=== PATIENT | female | born 1980 | race Caucasian/White ===

== ENCOUNTER 2018-07-31 11:35 | Observation (INO) ==
[2018-07-31 12:57] LABS: Amphetamine Screen,Urine Negative ng/mL (Cutoff=1000); Barbiturate Screen,Urine Negative ng/mL (Cutoff=200); Benzodiazepines Screen,Urine Negative ng/mL (Cutoff=200); Cannabinoid Screen,Urine Negative ng/mL (Cutoff = 50); Cocaine Screen,Urine Negative ng/mL (Cutoff= 300); Opiate Screen,Urine Negative ng/mL (Cutoff=300); Phencyclidine Screen,Urine Negative ng/mL (Cutoff=25)
--- NOTE | 2018-07-31 14:21 | OB/GYN Progress Note ---
Date of Encounter: 07/31/18 Time of Encounter: 14:07 - Assessment and Plan (1) 38 weeks gestation of Status: Acute (2) False labor Status: Acute SVE unchanged. Labor precautions given. Nubain offered, pt declined. (3) NST (non-stress test) reactive Status: Acute Subjective - Subjective Interval history: 37 y/o female presenting at 38w3d for possible labor. Had contractions since 8 pm last night about every 7 minutes, except while sleeping this morning from 5-8 am. movement within normal limits. No vaginal bleeding or fluid leakage noted. Nausea with vomiting after 4 pm nearly every day. Can tolerate small meals earlier in the day. Has back pain related to fibromyalgia, especially in lower back. Also has pain getting up & down on toilet to void as well as pain going up steps. Antepartum ROS: movement normal, contractions, no loss of fluid, no vaginal bleeding Objective - Vital Signs Vital Signs: Intake and Output 07/30/18 07/31/18 07/31/18 23:59 07:59 15:59 Other: Weight 76.702 kg Patient Weight 07/31/18 23:59 Weight 76.702 kg - Exam FHR: category 1 FHR comments: 130 Reactive NST Auscultation: bilateral: normal Abdomen: Present: soft, gravid Uterus: Present: normal Cervical dilation: 2/50/-3, unchanged from office
== END 2018-07-31 14:45 | disposition home or self-care (01) ==
LOC: 1NENULAB
PROVIDERS: ADMIT Registered Nurse; ATTEND Registered Nurse

== ENCOUNTER 2018-08-02 04:26 | Inpatient (IN) ==
[2018-08-02 00:38] LABS: Amphetamine Screen,Urine Negative ng/mL (Cutoff=1000); Barbiturate Screen,Urine Negative ng/mL (Cutoff=200); Benzodiazepines Screen,Urine Negative ng/mL (Cutoff=200); Cannabinoid Screen,Urine Negative ng/mL (Cutoff = 50); Cocaine Screen,Urine Negative ng/mL (Cutoff= 300); Opiate Screen,Urine Negative ng/mL (Cutoff=300); Phencyclidine Screen,Urine Negative ng/mL (Cutoff=25)
--- NOTE | 2018-08-02 04:01 | OB/GYN History & Physical ---
Date of Encounter: 08/02/18 Time of Encounter: 03:53 Assessment and Plan (1) Insulin resistance complicating Current visit: Yes Status: Acute Patient checks blood sugars in early , only sporadic checks over the last few weeks, to check yesterday after lunch patient states postprandial was in the 120s (2) Positive GBS test Current visit: Yes Status: Acute We will start penicillin protocol (3) Fibromyalgia Current visit: Yes Status: Acute (4) Advanced maternal age (AMA) in Current visit: Yes Status: Acute (5) History of herpes genitalis Current visit: Yes Status: Acute Last outbreak 2008 therapy, not on suppressive therapy, no symptoms currently, no lesions seen on exam (6) 38 weeks gestation of Current visit: No Status: Acute (7) Uterine contractions Current visit: Yes Status: Acute Admit to labor and delivery Penicillin for GBS Nubain and epidural as desired Frequent repositioning Anticipate History of Present Illness Chief complaint: Contractions HPI: Ms. Rivas is a 37 year old female 38+5 weeks gestation presented to triage with complaints of cramping and increased vaginal bleeding. Patient was seen yesterday in triage was 2 cm, upon admission was 3/50/-2, after triage patient will need cervical change to 4/80/-2. Reports good movement, denies leaking of fluid. care with Dr. Smith course complicated by advanced maternal age, history of miscarriage, previous child with developmental delay, genital herpes, insulin resistance diet controlled, moderate renal pyelectasis and positive group beta strep. Labs: O+, rubella and varicella immune, GBS positive, all other serologies negative Past Med Surg Social Fam HX - Past Medical History Source: patient Medical history: fibromyalgia Psychiatric history: no psych history - Past Surgical History Surgical History: appendectomy - Social History Smoking Status: Never smoker Smokeless Tobacco Status: No Alcohol use: none Drug use: none - Family History Mother Living Status: Still Living Hx Family Cardiac Disorders: Yes Hx Family Respiratory Disorders: No Hx Family Cancer: No Hx Family GI Disorders: No Hx Family Endocrine Disorder: No Hx Family Neuromuscular Disorders: No Hx Family Neurologic Disorders: No Hx Family HEENT Disorders: No Hx Family Autoimmune Disorders: No Obstetrical History - Pregnancies : 4 Para: 1 Term: 1 : 0 Ab's: 2 Livin Medications and Allergies Pepcid 100 mg PO DAILY 07/20/18 [History] Vitamin Tablet 1 tab PO DAILY 07/20/18 [History] Cyclobenzaprine [Flexeril] 10 mg PO HS PRN #4 tablet 07/31/18 [Rx] Ondansetron ODT [Zofran ODT] 4 mg SL Q6HR PRN #10 tab.rapdis 07/31/18 [Rx] Allergy/AdvReac Type Severity Reaction Status Date / Time codeine Allergy Vomiting Verified 08/01/18 23:53 Exam - Constitutional Constitutional: well developed, well nourished, no acute distress - Neck Neck exam: full ROM - Lungs Respiratory exam: CTAB - Cardiovascular Cardiovascular exam: RRR - Abdomen Abdomen: Present: gravid, non tender - Extremities Extremities exam: normal capillary refill, normal inspection - Cervix Dilation: 4 Effacement: 80 Station: -2 Results All other labs normal. - VTE Reasons for not Prescribing Prophylaxis: Treatment not Indicated - Low risk for VTE
[~2018-08-02 04:26] MED LIST: *HR* Nalbuphine 10 MG/ML AMPUL IVP PRN; Famotidine 20 MG/2 ML VIAL IVP PRN; Metoclopramide 10 MG/2 ML VIAL IVP PRN; Naloxone 0.4 MG/ML INJ IVP PRN; Ondansetron 4 MG/2 ML VIAL IVP PRN; Penicillin G Potassium 2,500,000 UNIT in D5% in Water 100 ML IVPB SCH; Penicillin G Potassium 5,000,000 UNIT in 0.9 % Sodium Chloride Mini Bag 100 ML IVPB ONE; Ringers Solution, Lactated 1,000 ML IVC SCH
[2018-08-02 04:30] LABS: Basophils # 0.1 K/mcL (0.0-0.2); Basophils % 0.8 %; Eosinophils # 0.2 K/mcL (0.0-0.6); Eosinophils % 1.7 %; Hematocrit 38.3 % (35.3-44.9); Hemoglobin 12.9 g/dL (11.5-15.4); Immature Granulocytes % 0.3 % (0-4); Lymphocytes # 2.8 K/mcL (0.6-4.6); Lymphocytes % 24.4 %; Mean Corpuscular HGB Conc 33.7 g/dL (31.6-35.5); Mean Corpuscular Hemoglobin 29.2 pg (28.0-33.3); Mean Corpuscular Volume 86.7 fL (83.0-100.0); Monocytes # 0.8 K/mcL (0.0-1.3); Neutrophils # 7.6 K/mcL (1.6-8.9); Platelet Count 283 K/mcL (140-400); Red Blood Count 4.42 M/mcL (3.82-4.97); Red Cell Distribution Width 13.2 % (11.5-14.5); Segmented Neutrophils % 65.8 %
[2018-08-02] MEDS ORDERED: Epidural Premix (fent/bupiv) 110 ML EP SCH (06:30)
--- NOTE | 2018-08-02 06:56 | Anesthesia Evaluation PreOp ---
Date of Encounter: 08/02/18 Time of Encounter: 06:20 - Past History Planned Operation: kermit Cardiac History: Other (fibromyalgia) Pulmonary History: Denies Any Significant HX IT PROJECT LEAD History: Denies Any Significant HX Other Medical History: Denies Any Significant HX Anesthesia History: No Prior Anesthetic Complications : Yes Test: Positive Alcohol Use: none Drug use: none Medications and Allergies Pepcid 100 mg PO DAILY 07/20/18 [History] Vitamin Tablet 1 tab PO DAILY 07/20/18 [History] Cyclobenzaprine [Flexeril] 10 mg PO HS PRN #4 tablet 07/31/18 [Rx] Ondansetron ODT [Zofran ODT] 4 mg SL Q6HR PRN #10 tab.rapdis 07/31/18 [Rx] Allergy/AdvReac Type Severity Reaction Status Date / Time codeine Allergy Vomiting Verified 08/01/18 23:53 - Meds/Allergy Pre-op Review Medications Reviewed: Yes Allergies Reviewed: Yes Beta Blockers on Current Med List: No Anesthesia Results - Labs 08/02/18 04:00 Anesthesia Exam - HEENT Pupil (Motor): Pupils equal Mallampati: II Teeth: Normal Oral Opening: Greater than 3
--- NOTE | 2018-08-02 06:58 | Anesthesia Procedures ---
Date of Encounter: 08/02/18 Time of Encounter: 06:20 Procedures: Anesthesia - Epidural/Spinal Patient ID/Chart reviewed: Yes Patient examined: Yes OB Eval: Gestational age: 38.5 OB Eval: : 3 OB Eval: Hx Para: 1 OB Eval: Dilated at (cm): 5 OB Eval: Contractions: Non-stressed pattern Consent Obtained: Yes Supplemental Oxygen: None/Room Air Site Prep: Aseptic Technique, Sterile prep and drape, Povidone-Iodine 1% Patient position: upright Amount of Local Anesthetic used: 3 Touhy Needle Gauge: 18 Touhy Needle Depth (cm): 6 Catheter Depth at Skin (cm): 12 Test Dose (1.5% Lido + Epi): Volume given (mls): 3 Loading Dose Administered: Thru Catheter Infusion Rate (mls/hr): [address]: Tegaderm, Tape Interspace Used: L4-L5 Loss of Resistance (XENIA): Yes Blood: No CSF: No Paresthesia: No Spinal Needle Gauge: 24 (toleratied procedure well FHT VSS throughout see nursing notes)
[2018-08-02] MEDS ORDERED: EPHEDrine 50 MG/ML VIAL ONE (07:23)
[2018-08-02] MEDS: Penicillin G Potassium 2,500,000 UNIT in 0.9 % Sodium Chloride 100 ML IVPB SCH ×2 (07:56→13:47)
--- NOTE | 2018-08-02 08:24 | OB Labor Progress Note ---
Date of Encounter: 08/02/18 Time of Encounter: 07:50 Labor Progress Note - Subjective Subjective: Patient resting in bed. RN states she was hypotensive after epidural but has since been corrected and is feeling better. Patient states she is not feeling any pain at this time. - Vital Signs Vital Signs: VSS - Cervix Cervix: Complete and -1 - Heart Tones Heart Tones: 165 with moderate variability and 15 x 15 accels. No decels. - [place]: Contractions palpate firm and are every 2-3 minutes lasting roughly 45-60 seconds - Plan Plan: Continue routine labor management GBS positive; PCN prophylaxis Anticipate vaginal delivery POC per consult with Dr Gan.
--- NOTE | 2018-08-02 09:21 | OB Labor Progress Note ---
Date of Encounter: 08/02/18 Time of Encounter: 09:19 Labor Progress Note - Subjective Subjective: Patient resting comfortably in bed. Requested to recheck cervix by RN. - Vital Signs Vital Signs: VSS - Cervix Cervix: 7-8/80/-2 - Heart Tones Heart Tones: 150 moderate variability and 15 x 15 accels. no decels noted. - [place]: Contractions every 2 to 3 minutes - Plan Plan: Continue routine labor management. GBS positive; pcn prophylaxis Consider pitocin for labor augmentation Frequent position changes Anticipate vaginal delivery POC per consult with Dr Gan.
[2018-08-02] MEDS ORDERED: Oxytocin 20 units/ LR 1000 mL 20 UNIT/1,000 ML BAG IVC ONE (10:10)
[2018-08-02] MEDS ORDERED: Oxytocin 20 units/ LR 1000 mL 20 UNIT/1,000 ML BAG IVC SCH ×2 (12:45→18:09)
--- NOTE | 2018-08-02 15:00 | OB Labor Progress Note ---
Date of Encounter: 08/02/18 Time of Encounter: 14:57 Labor Progress Note - Subjective Subjective: Moaning through contractions. epidural adjusted requested - Vital Signs Vital Signs: VSS - Cervix Cervix: 8-9/90/0 - Heart Tones Heart Tones: 160 moderate variability. 15 x 15 accels Variable decels - [place]: Contractions every 2 minutes; palpate strong - Plan Plan: Continue routine labor management GBS positive; pcn prophylaxis Titrate pitocin as needed CQ DEVELOPER notified for epidural Anticipate vaginal delivery POC per consult Dr Gan
--- NOTE | 2018-08-02 16:23 | Event Note ---
Date of Encounter: 08/02/18 Time of Encounter: 16:21 Dr Gan called to bedside to evaluate tracing. Recurrent variables and decels noted with increasing baseline. Moderate variability continues. Contractions every 2-3 minutes. Discussed section with patient and Dr Gan. Patient is agreeable to . Pitocin discontinued and patient prepped for section. Recheck of cervix at this time (cervix beginning to swell)/0.
[2018-08-02] MEDS ORDERED: Azithromycin 1,000 MG in D5% in Water 250 ML IVPB ONE (16:34)
[2018-08-02] MEDS ORDERED: CeFAZolin Syr 2,000MG/20 ML 2,000 MG/20 ML SYRINGE IVPB ONE (16:36)
[2018-08-02] MEDS ORDERED: Chloroprocaine/PF 20 ML VIAL INFILT ONE (16:38)
[2018-08-02] MEDS ORDERED: *HR* Oxytocin 10 UNIT/ML VIAL IM ONE ×2 (16:53→17:02)
[2018-08-02] MEDS ORDERED: Ringers Solution, Lactated 1,000 ML ONE (16:53)
[2018-08-02] MEDS ORDERED: Ondansetron 4 MG/2 ML VIAL ONE (16:59)
[2018-08-02] MEDS ORDERED: *HR* Phenylephrine 10 MG/ML VIAL ONE (16:59)
[2018-08-02] MEDS ORDERED: *HR* Morphine Sulfate/PF 10 MG/10 ML AMPUL ONE (17:09)
--- NOTE | 2018-08-02 17:32 | OB/GYN Procedure Note ---
Section - Date of procedure: 08/02/18 Preop diagnosis: arrest of dilation, category 2 FHT tracing Post-op diagnosis: same Procedure: section Surgeon: Renan Gan Quantitated Blood Loss: 300 Was there an sales assistant displays present: Yes Operating Cost Clerk: Amrit Shetty Clay Dry Press Mixer Operator: Sharan Calderon Anesthesia Type: Epidural section complications: none Disposition: Post floor Specimens: Placenta - Infant (s) A Infant Delivery Date: 08/02/18 Infant Delivery Time: 17:02 Presentation: vertex Position: OA Route of delivery: other Gender: Male Viability: Viable Pounds: 7 Ounces: 2 Gram Weight: 3.245 kg at 1 minute: 8 at 5 minutes: 8 Specimens collected: cord blood Placenta: complete extraction Cord: 3 umbilical vessels - Narrative Narrative: Patient continued to have category 2 tracing with no cervical change. section was discussed with patient and her . They did wish to proceed with a section. The risks were discussed and informed consent was obtained. Patient was taken to the operating room with the IV in place. Her epidural was bolused. She was then prepped and draped in the usual sterile fashion. Once adequate analgesia was achieved a Pfannenstiel incision was made and carried sharply through the subcutaneous taste and fatty tissue until the fascial layers reached. The fascia was then nicked in the midline and incised bilaterally with Houser scissors. It was then dissected vertically for adequate exposure. Rectus abdominis musculature was in the midline and the peritoneum sharply entered. A bladder blade was placed at the inferior margin incision. The bladder flap was then developed. The bladder blade was placed over the bladder flap and a low transverse incision was then made in the lower uterine segment. Fluid was meconium-stained. The 's head was then easily delivered. The rest of the infant was then delivered. cried immediately upon delivery. The cord was clamped cut. The if was then passed to NICU team in attendance. Cord blood was obtained. The placenta was then delivered. Uterine massage and lavage. The uterine incision was then closed with 0 Vicryl suture in a running locking fashion. 2 [id number]'s were placed for final hemostasis. See Hemostasis the procedure was terminated. Sponge, needle, and instrument counts correct 2. The pelvic cavity was rinsed thoroughly with sterile water 2. The fascia was then closed after examining it. It was closed with 0 Vicryl suture running nonlocking fashion. The suprafascial region was rinsed thoroughly with sterile water 2 all bleeders cauterized. The skin was closed torey. Patient tolerated procedure well. Estimated blood loss is 300 mL. Patient delivered a male weight was 7 lbs. 2 oz., 3245 g. Apgars are 8 at 1 minute and 8 at 5 minutes.
[2018-08-02] MEDS ORDERED: Ondansetron 4 MG/2 ML VIAL IVP PRN (18:09)
[2018-08-02] MEDS ORDERED: Sennosides 8.6 MG TABLET PO PRN (18:09)
[2018-08-02] MEDS ORDERED: Metoclopramide 10 MG/2 ML VIAL IVP PRN (18:09)
[2018-08-02] MEDS ORDERED: Rho Immune Globulin 1,500 UNIT SYRINGE IM ONE (18:09)
[2018-08-02] MEDS ORDERED: *HR* Labetalol 20 MG/4 ML SYRINGE IVP PRN (18:10)
[2018-08-02] MEDS ORDERED: *HR* Promethazine 25 MG/ML VIAL IVP PRN (18:10)
[2018-08-02] MEDS ORDERED: Ondansetron 4 MG/2 ML VIAL IVP ONE (18:10)
[2018-08-02] MEDS ORDERED: *HR* HYDROmorphone 2 MG TABLET PO PRN (18:10)
[2018-08-02] MEDS: *HR* HYDROmorphone (PF) 1 MG/ML SYRINGE IVP PRN ×2 (18:33→19:54)
[2018-08-02] MEDS: ceFAZolin 2,000 MG in 0.9 % Sodium Chloride 100 ML IVPB SCH (23:29)
[2018-08-02] MEDS: *HR* OxyCODONE/APAP 5/325 TABLET PO PRN (23:31)
[2018-08-03] MEDS: Ibuprofen 600 MG TABLET PO PRN ×3 (04:34→21:40)
[2018-08-03] MEDS: *HR* OxyCODONE/APAP 5/325 TABLET PO PRN ×5 (04:35→22:18)
--- NOTE | 2018-08-03 07:06 | Anesthesia Evaluation Post Op ---
Date of Encounter: 08/03/18 Time of Encounter: 07:05 - Vital Signs Vital Signs: Vital Signs/O2 Sat, Most Current Temp Pulse Resp BP Pulse Ox 98.7 F 92 15 120/76 93 08/03/18 00:20 08/03/18 00:20 08/03/18 00:20 08/03/18 00:20 08/03/18 00:20 - Lungs Lungs: Clear Ascult./Percussion - Airway Airway: Non-obstructed - Cardiovascular Regular Rate - Mental Status Mental Status: Alert & Oriented, Answers Appropriately - Pain Pain Scale: 4 - Nausea Vomiting Nausea Vomiting: Not Present - Hydration Hydration: Tolerates oral liquids, Hernandez catheter
[2018-08-03 07:16] LABS: Basophils % 0.3 %; Eosinophils % 0.3 %; Hematocrit 34.5 % (35.3-44.9); Hemoglobin 11.9 g/dL (11.5-15.4); Immature Granulocytes % 0.5 % (0-4); Lymphocytes # 2.2 K/mcL (0.6-4.6); Lymphocytes % 16.7 %; Mean Corpuscular HGB Conc 34.5 g/dL (31.6-35.5); Mean Corpuscular Hemoglobin 29.5 pg (28.0-33.3); Mean Corpuscular Volume 85.6 fL (83.0-100.0); Mean Platelet Volume 9.3 fL (9.4-12.4); Monocytes # 0.6 K/mcL (0.0-1.3); Monocytes % 4.6 %; Neutrophils # 10.2 K/mcL (1.6-8.9); Platelet Count 199 K/mcL (140-400); Red Blood Count 4.03 M/mcL (3.82-4.97); Red Cell Distribution Width 13.2 % (11.5-14.5); Segmented Neutrophils % 77.6 %
[2018-08-03] MEDS: Prenatal Vit/FA 1 EACH TABLET PO SCH (08:07)
[2018-08-03] MEDS: ceFAZolin 2,000 MG in 0.9 % Sodium Chloride 100 ML IVPB SCH ×2 (08:10→18:18)
--- NOTE | 2018-08-03 08:42 | OB/GYN Progress Note ---
Date of Encounter: 08/03/18 Time of Encounter: 08:40 - Assessment and Plan (1) Status post primary low transverse section Current Visit: Yes Status: Acute continue routine postop/ care anticipate discharge home tomorrow 1 week nurse visit for staple removal (2) Breast feeding status of mother Current Visit: Yes Status: Acute support prn Subjective - Subjective Principal diagnosis: status postop day 1 primary c/s for failure to progress Interval history: Patient doing well, meeting day 1 milestones. Patient tolerating regular diet. Breast feeding male . Patient reports: appetite normal, voiding normally, pain well controlled, ambulating normally [place]: doing well, nursing well Objective - Vital Signs Latest vital signs: Vital Signs Temp Pulse Resp BP Pulse Ox 08/03/18 07:39 97.5 F L 81 14 100/63 94 08/03/18 04:36 98.0 F 85 16 109/74 93 08/03/18 00:20 98.7 F 92 15 120/76 93 08/02/18 23:24 99.0 F 97 16 112/77 94 08/02/18 22:20 99.0 F 80 16 115/73 93 08/02/18 21:00 98.7 F 69 14 110/72 93 08/02/18 20:15 98.6 F 92 14 129/71 95 Intake and Output 08/02/18 08/03/18 08/03/18 23:59 07:59 15:59 Intake Total 600 / 600 Output Total 1050 / 1050 1000 / 1000 Balance -1050 / -950 -400 / -400 Intake: IV Fluids 100 / 100 Ancef 2,000 MG In 0.9 % Sodium 100 / 100 Chloride 100 ML @ 200 mls/hr IVPB Q8HR [facility] Rx#:[id number] Oral 500 / 500 Output: Urine 600 / 600 Catheter 450 / 450 1000 / 1000 Other: Weight 77.1 kg 76.476 kg Patient Weight 08/03/18 23:59 Weight 76.476 kg - Exam Lungs: bilateral: normal Chest: Normal S1, Normal S2 Extremities: Present: normal Abdomen: Present: normal appearance, soft Incision: Present: normal, dry, intact, other (torey) Uterus: Present: normal, firm Fundal Height: 2 (U/2) - Labs Labs: Laboratory Results - last 24 hr 08/03/18 06:55 WBC 13.1 H RBC 4.03 Hgb 11.9 Hct 34.5 L MCV 85.6 MCH 29.5 MCHC 34.5 RDW 13.2 Plt Count 199 MPV 9.3 L Immature Gran % 0.5 Seg Neutrophils % 77.6 Lymphocytes % 16.7 Monocytes % 4.6 Eosinophils % 0.3 Basophils % 0.3 Neutrophils # 10.2 H Lymphocytes # 2.2 Monocytes # 0.6 Eosinophils # 0.0 Basophils # 0.0
[2018-08-03] MEDS: Simethicone 80 MG TAB.CHEW PO PRN (09:37)
[2018-08-04] MEDS: Simethicone 80 MG TAB.CHEW PO PRN (03:32)
[2018-08-04] MEDS: *HR* OxyCODONE/APAP 5/325 TABLET PO PRN ×3 (03:32→12:22)
[2018-08-04] MEDS: Ibuprofen 600 MG TABLET PO PRN ×2 (03:32→11:14)
[2018-08-04] MEDS: Prenatal Vit/FA 1 EACH TABLET PO SCH (08:04)
[2018-08-04 08:08] VITALS: BP 128/90
--- NOTE | 2018-08-04 09:30 | Discharge Summary ---
Date of Encounter: 08/04/18 Time of Encounter: 09:28 - Discharge Diagnosis (1) Status post primary low transverse section Priority: Primary Status: Acute Comments: Patient meeting day two milestones. Pain well-controlled with prescribed medications. Voiding without difficulty, tolerating regular diet, bleeding light. No bowel movement yet. Anticipate discharge today (2) Breast feeding status of mother Priority: Secondary Status: Acute Comments: Provide breast pump prescription - Discharge Medications Prescriptions: New Breast Pump [BREAST PUMP] 1 each .ROUTE AD #1 each Docusate [Colace] 100 mg PO BID #60 capsule Simethicone [Gas-X] 80 mg PO TID PRN tab.chew PRN Reason: Dyspepsia Ibuprofen [Motrin] 600 mg PO Q6HR PRN #60 tablet PRN Reason: Cramping OxyCODONE/APAP 5/325 [Percocet 5/325 MG] 1 each PO Q6H PRN 7 Days #28 tablet PRN Reason: Moderate pain 4-6 Continued Pepcid 100 mg PO DAILY Vitamin Tablet 1 tab PO DAILY Discontinued Cyclobenzaprine [Flexeril] 10 mg PO HS PRN #4 tablet PRN Reason: Pain Ondansetron ODT [Zofran ODT] 4 mg SL Q6HR PRN #10 tab.rapdis PRN Reason: Nausea Home Medications: Pepcid 100 mg PO DAILY 07/20/18 [History] Vitamin Tablet 1 tab PO DAILY 07/20/18 [History] Breast Pump [BREAST PUMP] 1 each .ROUTE AD #1 each 08/04/18 [Rx] Docusate [Colace] 100 mg PO BID #60 capsule 08/04/18 [Rx] Ibuprofen [Motrin] 600 mg PO Q6HR PRN #60 tablet 08/04/18 [Rx] OxyCODONE/APAP 5/325 [Percocet 5/325 MG] 1 each PO Q6H PRN 7 Days #28 tablet 08/04/18 [Rx] Simethicone [Gas-X] 80 mg PO TID PRN tab.chew 08/04/18 [Rx] Allergies/Adverse Reactions: Allergy/AdvReac Type Severity Reaction Status Date / Time codeine Allergy Vomiting Verified 08/01/18 23:53 Data Procedures and tests throughout hospitalization: Laboratory Tests 08/02/18 08/02/18 08/03/18 00:15 04:00 06:55 WBC 11.5 H 13.1 H RBC 4.42 4.03 Hgb 12.9 11.9 Hct 38.3 34.5 L MCV 86.7 85.6 MCH 29.2 29.5 MCHC 33.7 34.5 RDW 13.2 13.2 Plt Count 283 199 MPV 10.0 9.3 L Immature Gran % 0.3 0.5 Seg Neutrophils % 65.8 77.6 Lymphocytes % 24.4 16.7 Monocytes % 7.0 4.6 Eosinophils % 1.7 0.3 Basophils % 0.8 0.3 Neutrophils # 7.6 10.2 H Lymphocytes # 2.8 2.2 Monocytes # 0.8 0.6 Eosinophils # 0.2 0.0 Basophils # 0.1 0.0 Urine Opiates Screen Negative Ur Barbiturates Screen Negative Ur Phencyclidine Scrn Negative Ur Amphetamines Screen Negative U Benzodiazepines Scrn Negative Urine Cocaine Screen Negative U Marijuana (THC) Screen Negative Ur Drug Screen Interp See Below Date of admission: 08/02/18 04:26 Primary care physician: PCP YVONNE Discharging clinician: Mirna Arvizu Anticipated date of discharge: 08/04/18 - Patient Status Disposition: Home, Self-Care Condition: Good Functional capacity at discharge: independent ambulation Overall status at discharge: patient is progressing back to baseline - Discharge Instructions Follow Up With: NONE,PCP [Primary Care Provider] - Ivana Smith DO [Partnered Physician] - - Diet and Activity Activity: resume usual activities as tolerated Diet: regular diet Hospital Course Reason for admission: rupture of membranes Delivery: section Episiotomy: none Laceration: none Other procedures: none complications: none Discharge diagnosis: IUP at term delivered baby: male Hospital course: Date of procedure: 08/02/18 Preop diagnosis: arrest of dilation, category 2 FHT tracing Post-op diagnosis: same Procedure: section Surgeon: Renan Brown Blood Loss: 300 Was there an engineering assistant present: Yes Supervisor Real Estate Office: Amrit Shetty Safety Sealer: Sharan Calderon Anesthesia Type: Epidural section complications: none Disposition: Post floor Specimens: Placenta - Infant (s) Infant A Infant Delivery Date: 08/02/18 Delivery Time: 17:02 Presentation: vertex Position: OA Route of delivery: other Gender: Male Viability: Viable Pounds: 7 Ounces: 2 Gram Weight: 3.245 kg at 1 minute: 8 at 5 minutes: 8 Specimens collected: cord blood Placenta: complete extraction Cord: 3 umbilical vessels - Narrative Narrative: Patient continued to have category 2 tracing with no cervical change. section was discussed with patient and her . They did wish to proceed with a section. The risks were discussed and informed consent was obtained. Patient was taken to the operating room with the IV in place. Her epidural was bolused. She was then prepped and draped in the usual sterile fashion. Once adequate analgesia was achieved a Pfannenstiel incision was made and carried sharply through the subcutaneous taste and fatty tissue until the fascial layers reached. The fascia was then nicked in the midline and incised bilaterally with Houser scissors. It was then dissected vertically for adequate exposure. Rectus abdominis musculature was in the midline and the peritoneum sharply entered. A bladder blade was placed at the inferior margin incision. The bladder flap was then developed. The bladder blade was placed over the bladder flap and a low transverse incision was then made in the lower uterine segment. Fluid was meconium-stained. The infant's head was then easily delivered. The rest of the was then delivered. Infant cried immediately upon delivery. The cord was clamped cut. The if was then passed to NICU team in attendance. Cord blood was obtained. The placenta was then delivered. Uterine massage and lavage. The uterine incision was then closed with 0 Vicryl suture in a running locking fashion. 2 [id number]'s were placed for final hemostasis. See Hemostasis the procedure was terminated. Sponge, needle, and instrument counts correct 2. The pelvic cavity was rinsed thoroughly with sterile water 2. The fascia was then closed after examining it. It was closed with 0 Vicryl suture running nonlocking fashion. The suprafascial region was rinsed thoroughly with sterile water 2 all bleeders cauterized. The skin was closed torey. Patient tolerated procedure well. Estimated blood loss is 300 mL. Patient delivered a male weight was 7 lbs. 2 oz., 3245 g. Apgars are 8 at 1 minute and 8 at 5 minutes. Time Attestation: Total time spent providing and/or coordinating discharge services: Time Spent: Less than 30 minutes - VTE Reasons for not Prescribing Prophylaxis: Treatment not Indicated - Low risk for VTE Documentation of Mechanical Device: Intermittent pneumatic compression device Exam - Constitutional Vitals: Temp Pulse Resp BP Pulse Ox 98.3 F 87 14 128/90 97 08/04/18 08:06 08/04/18 08:06 08/04/18 08:06 08/04/18 08:06 08/04/18 08:06 General appearance IM: A&O X 3, pleasant, no acute distress, answers questions appropriately - Respiratory Respiratory exam: Present: CTAB - Cardiovascular Cardiovascular exam IM: Present: RRR, +S1, +S2 - GI/Abdominal GI/Abdominal exam IM: normal bowel sounds, soft Incision: normal, dry, intact, other (torey intact) - Rectal Rectal exam: normal inspection - Uterine Tone: Firm Uterus Position: At Umbilicus, Midline - Extremities Exam Extremities exam IM: Present: full ROM, normal capillary refill, normal inspection - Neurological Exam Neurological exam: alert, normal gait, oriented X3
== END 2018-08-04 12:40 | disposition home or self-care (01) | DRG 788 ==
LOC: 1NENULAB → 1NENUOBS 20:24
PROVIDERS: ADMIT Advanced Practice Midwife; ATTEND Advanced Practice Midwife